=== PATIENT | male | born 1965 | race Caucasian/White ===

== ENCOUNTER 2022-12-22 10:19 | Emergency (ER) | payer OTHER ==
[~2022-12-22] VITALS: Ht 170.2 cm; Wt 94.0 kg
[2022-12-22 11:30] VITALS: BP 146/77
[2022-12-22] MEDS ORDERED: HYDR-3965 PO (12:45)
[2022-12-22] MEDS ORDERED: ONDA4TAB12 PO (12:45)
[2022-12-22] MEDS ORDERED: IBUP-1984 PO (12:45)
== END 2022-12-22 13:00 | disposition home or self-care (01) ==
LOC: ER 10:19
DX: M25.562 Pain in left knee (principal)
CPT/HCPCS: 73564; 99283